=== PATIENT | female | born 1990 | race Caucasian/White ===

== ENCOUNTER 2018-02-07 13:36 | Inpatient (IN) | payer BC ==
--- NOTE | 2018-02-07 14:49 | PN ---
L&D Outpatient: Visit - Reproductive Information Estimated Due Date: 02/11/18 Gestational Age: 39 Weeks and 3 Days : 3 Para: 1 - 1011 - Reason for Visit Visit Reason: Pt presents for evaluation of labor contractions and possible leaking of fluid - Antepartal Records Antepartal Record: Reviewed, Uncomplicated - Patient History Patient History Significant: No L&D Outpatient: ROS - Review of Systems Constitutional: Uncomfortable - with UCs CV Complaint: No Respiratory: Shortness of Breath: No Gastrointestinal: No Nausea/Vomiting, Normal Bowel Movement Genitourinary: Leaking Fluid - ? Small gush of fluid around 1100. Nothing since , No Dysuria, No Bleeding Musculoskeletal: Contractions Movement: Normal L&D Outpatient: Exam Vitals - Most Recent: BP 144/80 Repat 127/77 HR 102 RR 20 T 97.5 Lab Values - Entire Visit: Laboratory Tests 02/07/18 13:55 Vag Amniotic Fld Detect Negative - Cervical Exam Cervical Exam: V. posterior 3cm/70%/vtx -2 - Abdominal Exam Abdomen Exam: Non-Tender, Fundal Height Consistent with Dates Abdomen Exam Comment: UCs q 3-4 min. Mild to moderate x 60-90 sec - Membranes Membrane Status: Intact - Ultrasound/Biophysical Profile Ultrasound Status: Not Done L&D Outpatient: EFM - External Monitor Findings Baseline Heart Rate: 135 External Monitor Findings: Accelerations Present, No Pattern of Variable or Late Decelerations, Variability Moderate, Baseline Stable External Monitor Findings Comment: No evidence of metabolic acidemia L&D Outpatient: Asses/Plan Assessment: A: IUP at 39-3/7 without evidence of membrane rupture Early labor vs. early active labor No evidence of metabolic acidemia P: Observe and re-eval in 1-2 hours or sooner PRN
--- NOTE | 2018-02-07 16:03 | PN ---
Progress Note - Progress Note Date of Service: 02/07/18 Note: S: Pt up and walking around. Reports regular, uncomfortable UCs q 3-4 minutes, unchanged. Describes active FM. No VB or LOF. Not excited to go home with regular UCs O: VSS, afebrile FHT: 135bpm. Moderate variability. +Accels. No decels UCs q 3-4 min, mild to moderate x 60-90 sec VE: v. posterior 3cm/70%/vtx -1 (unchanged in the last hour) A: IUP at 39-2/7 in latent labor No evidence of metabolic acidemia P: Pt prefers to wait here and continue expectant mgmt. Re-eval in a couple of hours or sooner PRN
--- NOTE | 2018-02-07 19:23 | HP ---
General Information - General Information Maternal Age: 27 Grav: 3 Para: 1 - 1011 SAB: 0 IEA: 1 Estimated Due Date: 02/11/18 Determined By: Please note that pt is 39-3/7 weeks GA by LMP not 40-0/7 as indicated in [employer] - confirmed by 10 week sono Gestational Age in Weeks and Days: 40 Weeks and 0 Days Maternal Blood Type and Rh: A Positive - Results this Serology/RPR Result: Non-Reactive Rubella Result: Immune HBsAg Result: Negative HIV Result: Negative GBS Culture Result: Negative Past Medical History Delivery History: Hx Uncomplicated Vaginal Delivery Delivery History Comment: 08/2013 7lbs 5oz male at [facility] by Freda Gallardo CNM Pertinent Past Medical History: See Records Pertinent Past Surgical History: See Records Pertinent Family History: See Records Family History Comment: Hypothyroid - Antepartal Records Antepartal Records: Reviewed, Uncomplicated Review of Systems Constitutional: Uncomfortable - with UCs CV Complaint: No Respiratory: Shortness of Breath: No Gastrointestinal: No Nausea/Vomiting, Normal Bowel Movement Genitourinary: No Dysuria, No Bleeding, No Leaking Fluid Musculoskeletal: Contractions Neurological: No Headache Movement: Normal Exam Allergies/Adverse Reactions: Allergies MS Bee Venom [Bee Venom] Allergy (Severe, Verified 09/19/13 08:53) Anaphylatic Shock BP 136/78 HR 95 T 98.8 Lab Values - Entire Visit: Laboratory Tests 02/07/18 13:55 Vag Amniotic Fld Detect Negative - Measurements Height: 5 ft 3 in Weight: 213 lb Weight in lbs: 213 Body Mass Index (BMI): 37.7 Pre- Weight: 180 lb Weight Gained This : 33 lbs and 0 ozs - Exam Abdomen: No Upper Quadrant Pain Breast: Breast Exam Deferred CVA: No CVA Tenderness Extremities: Edema - 1+ bilateraly pitting edema in LE Heart: Normal Rhythm/Heart Sounds HEENT: No Significant Findings Lungs: Clear Bilaterally Rectal: Rectal Exam Deferred Reflexes: DTR 2+ Thyroid: No Thyromegaly - Cervical Exam VE: 3cm/80%/vtx -2 - Abdominal Exam Abdomen Exam: Non-Tender, Fundal Height Consistent with Dates Abdomen Exam Comment: UCs q 2-3 min. Moderate to firm. Lasting 60-90 sec - Membranes Membrane Status: Intact - Ultrasound/Biophysical Profile Ultrasound Status: Not Done EFM Findings - External Monitor Findings Baseline Heart Rate: 130 External Monitor Findings: Accelerations Present, No Pattern of Variable or Late Decelerations, Variability Moderate, Baseline Stable Contractions: Regular, Moderate, 45-90 Seconds Contraction Frequency: q 2-3 min Assessment/Plan - Reason for Visit Reason for Visit: IUP at 39-3/7 weeks in early active labor No evidence of metabolic acidemia - Obstetrical Risk Factors Risk Factors Comment: None - Plan Plan: Active Labor Plan Comment: Anticipate - Date/Time of Admission Date of Admission: 02/07/18 Time of Admission: 19:20
[2018-02-08] MEDS ORDERED: Witch Hazel PAD* JAR TOPICAL PRN (07:41)
[2018-02-08] MEDS ORDERED: Acetaminophen TAB* 325 MG PO PRN (07:41)
[2018-02-08] MEDS ORDERED: Dibucaine 1% 28.35 GM TUBE PR PRN (07:41)
[2018-02-08] MEDS ORDERED: Glycerin ADULT SUPP PR PRN (07:41)
[2018-02-08] MEDS ORDERED: Witch Hazel PAD* JAR ONE (07:44)
[2018-02-08] MEDS: Ibuprofen TAB* 600 MG PO PRN ×3 (08:01→20:20)
[2018-02-08] MEDS ORDERED: Simethicone TAB* 80 MG TAB.CHEW PO SCH (08:30)
[2018-02-08] MEDS: Docusate CAP* 100 MG PO SCH ×3 (10:20→20:20)
[2018-02-09 07:16] LABS: ABS Basophils 0 10^3/ul (0-0.2); ABS Eosinophils 0.1 10^3/ul (0-0.6); ABS Lymphocytes 2.8 10^3/ul (1.0-4.8); ABS Monocytes 0.8 10^3/ul (0-0.8); ABS Neutrophils 7.5 10^3/ul (1.5-7.7); ABS Nucleated RBC 0 10^3/ul; Eosinophil % 0.6 % (0-6); Hematocrit 35 % (35-47); Hemoglobin 11.6 g/dl (12.0-16.0); Lymphocyte % 25.1 % (25-47); Mean Corpuscular HGB Conc 34 g/dl (31-36); Mean Corpuscular Hemoglobin 29 pg (27-31); Mean Corpuscular Volume 86 fL (80-97); Mean Platelet Volume 9.3 um3 (7.4-10.4); Nucleated Red Blood Cells % 0.1; Platelet Count 197 10^3/ul (150-450); Red Cell Distribution Width 14 % (10.5-15); White Blood Count 11.2 10^3/ul (3.5-10.8)
[2018-02-09 08:13] VITALS: BP 114/78
[2018-02-09] MEDS ORDERED: Ferrous Gluconate TAB* 324 MG TAB PO SCH (09:00)
[2018-02-09] MEDS: Ibuprofen TAB* 600 MG PO PRN ×2 (09:29→17:18)
[2018-02-09] MEDS: Docusate CAP* 100 MG PO SCH (09:29)
== END 2018-02-09 17:50 | disposition home or self-care (01) | DRG 560 ==
LOC: MCHOBOUT 13:36 → MCHOB 19:13
PROVIDERS: ADMIT Midwife; ATTEND Midwife
PROC: 10E0XZZ Delivery of Products of Conception, External Approach (ICD-10-PCS; principal; 2018-02-08)
PROC: 10907ZC Drainage of Amniotic Fluid, Therapeutic from Products of Conception, Via Natural or Artificial Opening (ICD-10-PCS; 2018-02-08)
PROC: 4A1HXCZ Monitoring of Products of Conception, Cardiac Rate, External Approach (ICD-10-PCS; 2018-02-08)
DX: O69.3XX0 Labor and delivery complicated by short cord, not applicable or unspecified (principal); O43.123 Velamentous insertion of umbilical cord, third trimester; O32.6XX0 Maternal care for compound presentation, not applicable or unspecified; Z3A.39 39 weeks gestation of pregnancy; Z37.0 Single live birth; Z91.030 Bee allergy status; Z83.49 Family history of other endocrine, nutritional and metabolic diseases; Z87.442 Personal history of urinary calculi
CPT/HCPCS: 36415; 84112; 85025; A9270-GY

== ENCOUNTER 2018-05-03 17:05 | Emergency (ER) | payer BC, MEDICAID ==
[2018-05-03] MEDS ORDERED: Ibuprofen TAB* 600 MG PO ONE (18:22)
--- NOTE | 2018-05-03 18:29 | ED ---
Skin Complaint - HPI Summary HPI Summary: 27-year-old presents ER with complaints of right toenail pain. Patient states that been ongoing for the past couple days. It has been worsening. States she has an issue with her great toe on that foot. Previously had toenail removed by type copy examiner however go back and now believes it to an ingrown toenail. States pain has been increasing, Agnieszka become more red and tender. Denies any discharge. Admits to being warm. States she has tried to pop it and remove the nail multiple times at home with needles and scalpels. Has had similar issues in the past. Hurts to walk due to the pain. Has not taken any medicine at home. No past medical history. No known history of MRSA. No other complaints at this time. Denies any fever. No red streaking. - History of Current Complaint Chief Complaint: EDExtremityLower Time Seen by Provider: 05/03/18 17:25 Stated Complaint: POSSIBLE INFECTION RT BIG TOE Hx Obtained From: Patient Hx Last Menstrual Period: 06/22/16 Onset/Duration: Started Days Ago, Still Present, Worse Since Skin Exposure Onset/Duration: Days Ago Timing: Constant Onset Severity: Moderate Current Severity: Severe Pain Intensity: 10 Pain Scale Used: 0-10 Numeric Skin Location: Foot - great toe, right Character: Swelling, Redness, Painful Aggravating Symptom(s): Touch Alleviating Symptom(s): Nothing Associated Signs & Symptoms: Negative - Allergy/Home Medications Allergies/Adverse Reactions: Allergies Allergy/AdvReac Type Severity Reaction Status Date / Time bee venom protein (honey bee) Allergy Anaphylatic Verified 05/03/18 17:11 Shock PMH/Surg Hx/FS Hx/Imm Hx Endocrine/Hematology History: Denies: Hx Anticoagulant Therapy, Hx Diabetes, Hx Thyroid Disease Cardiovascular History: Denies: Hx Congestive Heart Failure, Hx Deep Vein Thrombosis, Hx Hypertension , Hx Myocardial Infarction, Hx Pacemaker/ICD Respiratory History: Reports: Hx Asthma - As a child. Denies: Hx Chronic Obstructive Pulmonary Disease (COPD), Hx Lung Cancer, Hx Pneumonia, Hx Pulmonary Embolism GI History: Denies: Hx Gall Bladder Disease, Hx Gastrointestinal Bleed, Hx Ulcer, Hx Urosepsis History: Reports: Hx Kidney Infection - hx of kidney stones Denies: Hx Kidney Stones, Hx Renal Disease Neurological History: Denies: Hx Dementia, Hx Migraine, Hx Seizures, Hx Transient Ischemic Attacks (TIA) Psychiatric History: Denies: Hx Anxiety, Hx Depression, Hx Schizophrenia, Hx Bipolar Disorder - Surgical History Surgery Procedure, Year, and Place: none - Immunization History Immunizations Up to Date: Yes Infectious Disease History: No Infectious Disease History: Denies: Traveled Outside the [place] in Last 30 Days - Family History Known Family History: Positive: Hypertension, Diabetes Negative: Cardiac Disease - Social History Alcohol Use: None Substance Use Type: Reports: None Smoking Status (MU): Never Smoked Tobacco Review of Systems Constitutional: Negative Cardiovascular: Negative Respiratory: Negative Musculoskeletal: Negative Positive: Other - great toenail pain All Other Systems Reviewed And Are Negative: Yes Physical Exam Triage Information Reviewed: Yes Vital Signs On Initial Exam: Initial Vitals Temp Pulse Resp BP Pulse Ox 98.8 F 78 14 121/72 99 05/03/18 17:07 05/03/18 17:07 05/03/18 17:07 05/03/18 17:07 05/03/18 17:07 Vital Signs Reviewed: Yes Appearance: Positive: Well-Appearing, No Pain Distress, Well-Nourished Skin: Positive: Warm, Skin Color Reflects Adequate Perfusion, Dry, Erythema @ - right great toe, surrounding nail bed, no fluctuance, drainage or abscess. no sign of paronychia. edematous, warmth and erythematous. appears to be an infected ingrown toenail.. Negative: Cold, Cyanosis @, Pale Head/Face: Positive: Normal Head/Face Inspection Eyes: Positive: Conjunctiva Clear ENT: Positive: Hearing grossly normal, Pharynx normal Neck: Positive: Supple, Nontender Respiratory/Lung Sounds: Positive: Clear to Auscultation, Breath Sounds Present. Negative: Rales, Rhonchi, Wheezes Cardiovascular: Positive: Normal, RRR, Pulses are Symmetrical in both Upper and Lower Extremities. Negative: Murmur, Rub Abdomen Description: Positive: Nontender, Soft Bowel Sounds: Positive: Present Musculoskeletal: Positive: Normal, Strength/ROM Intact Neurological: Positive: Normal, Sensory/Motor Intact, Alert, Oriented to Person Place, Time, CN Intact II-III Diagnostics - Vital Signs Vital Signs Temp Pulse Resp BP Pulse Ox 05/03/18 17:07 98.8 F 78 14 121/72 99 - Laboratory Lab Statement: Any lab studies that have been ordered have been reviewed, and results considered in the medical decision making process. Course/Dx - Course Course Of Treatment: Appears to be an infected ingrown toenail with surrounding cellulitis. No abscess or signs of paronychia. Patient attempted drainage at home. Does not appear to require drainage at this time. Will give Keflex and Bactroban. Continue Epsom salt and warm soaks. Rest and ibuprofen. Given ibuprofen while in ED. Follow-up with podiatry on Wednesday as scheduled. Aware worsening signs and symptoms watch out for. No concern for other etiology at this time. Follow-up with primary care provider. - Differential Diagnoses - Skin Complaint Differential Diagnoses: Cellulitis, Other - Ingrown toenail - Diagnoses Provider Diagnoses: Ingrown toenail of right foot with infection Discharge - Sign-Out/Discharge Documenting (check all that apply): Patient Departure - Discharge Plan Condition: Good Disposition: HOME Prescriptions: Cephalexin CAP* [Keflex CAP*] 500 mg PO TID #30 cap Mupirocin 2% OINT* [Bactroban 2 % Oint*] 1 applic TOPICAL BID #1 tube Patient Education Materials: Cellulitis (ED), Ingrown Nail (ED) Referrals: [facility] [place] [facility] [place]Outside] Yee Blunt DPM [Doctor of Podiatric Medicine] - Additional Instructions: take prescribed antibiotic as directed. apply topical antibiotic as directed. warm soaks with epsom salts several times daily. wash hands frequently. follow up with podiatry as scheduled on wednesday. continue ibuprofen as discussed for pain and inflammation - Billing Disposition and Condition Condition: GOOD Disposition: Home
[2018-05-03 18:46] VITALS: BP 128/68
== END 2018-05-03 18:45 | disposition home or self-care (01) ==
LOC: ED 17:05
DX: L60.0 Ingrowing nail (principal); L03.031 Cellulitis of right toe
CPT/HCPCS: 99282; A9270-GY

== ENCOUNTER 2019-07-11 18:38 | Emergency (ER) | payer MEDICAID, OTHER ==
--- OUTSIDE RECORDS SUMMARY | 2019-07-11 19:33 | XMS REPORT ---
:1990 Author Organization [facility] Address [address] [place] [address] Care Team Providers Name Role Phone Emilie Watt Unavailable Unavailable PROBLEMS No Known Problems ALLERGIES No Information ENCOUNTERS Encounter Location Date Diagnosis [address] Aug, [place] [address] [facility] [address] [facility], [place] [address] [facility] [address], [place] [address] Aug, [place] [address] Aug, [place] [address] Jul, [place] [address] Jun, [place] [address] [facility] [address] [place], Apr, [place] [address] [place] [address] Apr, [place] [address] Apr, Dental caries [address] [place] [address] Apr, [place] [address] [facility] [address] [place] [address] Mar, [place] [address] February, Health [place] [address] Nov, [place] [address] [facility] [address] Nov, [place] [address] [facility] [address] Sep, [place] [address] [facility] [address] Jul, [place] [address] [facility] [address] Jul, [place] [address] [facility] [address] [facility] Jul, [place] [address] [facility] [address] [facility] May, Dental caries [address] [place] [address] [place] [address] [facility] [place], [place] [address] [facility] [address] [place], [place] [address] [facility] [address] [place], [place] [address] [facility] [address] [place] [address] [facility] [address] [place] [address] [facility] [address] [place] [address] [facility] [address] [place] [address] [facility] [address] [place], [place] [address] [facility] [address] [place], [place] [address] [facility] [address] [place] [address] [facility] [address] [facility] Nov, [place] [address] [facility] [address] [place] [address] [facility] [address] [place] [address] [facility] [address] [place] [address] [facility] [address] [place] [address] [facility] [address] [place] [address] [facility] [address] [place] [address] [facility] [address] [place] [address] [facility] [address] [place] [address] [facility] [address] [place], [place] [address] [place] [facility] [address] [place], [place] [address] [place] [facility] [address] [place], [place] [address] Facilitated Enrollment - UNKNOWN Nov, [place] [facility] [address] [place], [place] [address] [facility] [address] [facility] Nov, URI, acute [address] [place] [address] [place] [facility] [address] [place], [place] [address] [facility] [address] [facility] Sep, [place] [address] [place] [facility] [address] [place], [place] [address] [place] [facility] [address] [place] [address] [facility] [address] [place], [place] [address] [facility] [address] [place], [place] [address] [facility] [address] [place], [place] [address] [place] [facility] [address] [place], [place] [address] [place] [facility] [address] [place], [place] [address] [place] [facility] [address] [place], Jul, Finger [place], [place] [address]29[address] [place] [address] IMMUNIZATIONS No Known Immunizations SOCIAL HISTORY Never Assessed REASON FOR REFERRAL FUNCTIONAL STATUS PLAN OF CARE VITAL SIGNS MEDICATIONS Unknown Medications PROCEDURES No Known procedures RESULTS No Results REASON FOR VISIT Acute Triage Insurance Providers [facility] Health Member Patient Patient Patient Patient Patient Subscriber Subscriber Subscriber Group Insurance Plan Plan Plan Plan ID Relationship Address Phone Name Date of ID Name Date of No Type Insurance Insurance Insurance Coverage to Subscriber Address Phone Name Dates Delta [phone] Delta self Patrizia [id number] [facility] [place] [address] [place] [address] Aetna Open [phone] Aetna Open self Patrizia [id number] Access [id number] Access [place] [address] [place] [facility] [address] Blue [phone] Blue self Patrizia [id number] Choice Opt [id number] 89 Choice Opt [place] [address] [place] [facility] [address] Excellus [phone] Excellus self Patrizia [id number] BC HMO POS [id number] 89 BC HMO POS [place] [address] [place] [address] Medicaid [id number] [phone] Medicaid self Patrizia [id number] [facility] [address] [place] [address] Aetna [phone] Aetna self Patrizia [id number]- [id number] Dental- [place] [address] PPO [place] PPO 01 [place] [address] [place] [phone] [place] self Patrizia [id number] Medicaid [place] 47 [place] [address] Medical Case [phone] Case self Patrizia [id number] Management [place] 02 Management [facility] [address] [facility] Blue [phone] Blue self Patrizia [id number] [phone] Choice Opt [phone] Attn 83 Choice Opt [place] -WEA GG457 [place] Claims [id number] [place] Hplex [facility] Hplex Edwin [facility] [address] Reginald [phone] Reginald self Patrizia [id number] Medicaid [id number] Medicaid [facility] [place] [address] [employer] MEDICAL (GENERAL) HISTORY Type Description Date Medical History heart murmur Surgical History dental surgery Hospitalization History childbirth
[2019-07-11] MEDS ORDERED: Ondansetron INJ* 2 MG/ML VIAL IV ONE (19:46)
[2019-07-11] MEDS ORDERED: Morphine INJ* 10 MG/ML 1 ML CARPUJECT IV ONE (19:46)
[2019-07-11] MEDS ORDERED: Morphine 10 MG/ML VIAL (1 ml) IV ONE (19:46)
[2019-07-11] MEDS ORDERED: NS 0.9% 1000 ML** 2,000 ML IV ONE (20:00)
[2019-07-11 20:35] LABS: Urine Appearance Clear; Urine Bacteria Absent (Absent); Urine Bilirubin Negative (Negative); Urine Blood 3+ (Negative); Urine Color Yellow; Urine Glucose Negative (Negative); Urine Ketones 1+ (Negative); Urine Nitrite Negative (Negative); Urine Protein 1+(30 mg/dL) (Negative); Urine Red Blood Cell 3+(>10/hpf) (Absent); Urine Specific Gravity 1.026 (1.010-1.030); Urine Squamous Epithelial Cell Present (Absent); Urine Urobilinogen Negative (Negative); Urine White Blood Cell Absent (Absent)
[2019-07-11 20:53] LABS: ABS Basophils 0.1 10^3/ul (0-0.2); ABS Eosinophils 0.1 10^3/ul (0-0.6); ABS Lymphocytes 1.1 10^3/ul (1.0-4.8); ABS Monocytes 0.5 10^3/ul (0-0.8); ABS Neutrophils 10.9 10^3/ul (1.5-7.7); Eosinophil % 0.7 %; Hematocrit 38 % (35-47); Hemoglobin 12.6 g/dL (12.0-16.0); Lymphocyte % 8.4 %; Mean Corpuscular HGB Conc 33 g/dL (31-36); Mean Corpuscular Hemoglobin 30 pg (27-31); Mean Corpuscular Volume 89 fL (80-97); Mean Platelet Volume 8.8 fL (7.4-10.4); Platelet Count 202 10^3/uL (150-450); Red Blood Count 4.25 10^6 /uL (3.70-4.87); Red Cell Distribution Width 13 % (10-15); White Blood Count 12.7 10^3/uL (3.5-10.8)
[2019-07-11 21:13] LABS: ALT 16 U/L (7-52); AST 12 U/L (13-39); Albumin 3.9 g/dL (3.2-5.2); Albumin/Globulin Ratio 1.6 (1-3); Alkaline Phosphatase 31 U/L (34-104); Anion Gap 7 mmol/L (2-11); BUN/Creatinine Ratio 22.7 (8-20); Blood Urea Nitrogen 17 mg/dL (6-24); C Reactive Protein 2.28 mg/L (<8.01); CO2 Carbon Dioxide 25 mmol/L (22-32); Calcium 8.3 mg/dL (8.6-10.3); Chloride 106 mmol/L (101-111); EGFR African American 111.3 (>60); Globulin 2.4 g/dL (2-4); Glucose 148 mg/dL (70-100); Potassium 3.5 mmol/L (3.5-5.0); Sodium 138 mmol/L (135-145); Total Protein 6.3 g/dL (6.4-8.9)
[2019-07-11 21:19] LABS: HCG Pregnancy < 0.60 mIU/mL
[2019-07-11 21:20] VITALS: BP 105/61
--- NOTE | 2019-07-11 22:19 | ED ---
Abdominal Pain/Female - HPI Summary HPI Summary: This patient is a 29 year old F presenting to [facility] accompanied by her boyfriend with a chief complaint of LLQ abdominal pain that radiates to her lumbar and thoracic spine since 07/10/19. Patient states that she driving home from work when the LLQ abdominal pain began. Patient states that she came home and laid down in bed. Patient states when she laid down her boyfriend started to rub her back and she experienced pain. Patient states that the pain in her back took her breath away and the pain shot up" from abdomen to her back. The patient rates the pain 10/10 in severity in the ED. Symptoms aggravated by nothing. Symptoms alleviated by nothing. Patient reports LKFLP 07/07/19. Patient denies fever, diarrhea, vaginal discharge and STDs. Vital signs while in room: HR 69 bpm, BP 140/60, O2 sat 95% A1 Home Medications Medication Instructions Recorded Confirmed Type Levonorgestrel-Ethin Estradiol 1 tab PO DAILY 06/14/19 07/11/19 History [Levonor-Eth Estrad 0.1-0.02 mg] Tea Tree Oil [Tea Tree] 1 oil TOPICAL BID PRN 07/11/19 07/11/19 History oxyCODONE/Acetamin 5/325 MG* 1 tab PO Q6H PRN #12 tab MDD 4 07/11/19 Rx [Percocet 5/325 TAB*] - History of Current Complaint Chief Complaint: EDBackInjuryPain Stated Complaint: SEVERE ABDOMINAL PAIN PER PT Time Seen by Provider: 07/11/19 19:45 Hx Obtained From: Patient Hx Last Menstrual Period: 07/07/19 ?: No Onset/Duration: Sudden Onset, Lasting Days - 07/10/19 Timing: Constant Severity Initially: Severe Severity Currently: Severe Pain Intensity: 10 Pain Scale Used: 0-10 Numeric Location: Discrete At: LLQ Radiates: Yes Radiates to: Back Character: Cramping Aggravating Factor(s): Nothing Alleviating Factor(s): Nothing Associated Signs and Symptoms: Positive: Other: - Nursing triage note states chills and fever. Pt denies fever to Dr. Weber and is afebrile in the ED. Negative: Fever, Vaginal Discharge, Diarrhea Allergies/Adverse Reactions: Allergies Allergy/AdvReac Type Severity Reaction Status Date / Time bee venom protein (honey bee) Allergy Anaphylatic Verified 06/20/19 07:48 Shock Home Medications: Home Medications Tea Tree Oil [Tea Tree] 1 oil TOPICAL BID PRN 07/11/19 [History Confirmed ] PMH/Surg Hx/FS Hx/Imm Hx Previously Healthy: No Endocrine/Hematology History: Denies: Hx Anticoagulant Therapy, Hx Diabetes, Hx Thyroid Disease Cardiovascular History: Reports: Other Cardiovascular Problems/Disorders - " hole in heart" Denies: Hx Congestive Heart Failure, Hx Deep Vein Thrombosis, Hx Hypertension , Hx Myocardial Infarction, Hx Pacemaker/ICD Respiratory History: Reports: Hx Asthma - as a child Denies: Hx Chronic Obstructive Pulmonary Disease (COPD), Hx Lung Cancer, Hx Pneumonia, Hx Pulmonary Embolism GI History: Denies: Hx Gall Bladder Disease, Hx Gastrointestinal Bleed, Hx Ulcer, Hx Urosepsis History: Reports: Hx Kidney Infection - 2 weeks ago on 07/11/19 ED visit, Rx' d with Abx , Hx Kidney Stones Denies: Hx Renal Disease Neurological History: Denies: Hx Dementia, Hx Migraine, Hx Seizures, Hx Transient Ischemic Attacks (TIA) Psychiatric History: Denies: Hx Anxiety, Hx Depression, Hx Schizophrenia, Hx Bipolar Disorder - Surgical History Surgical History: Yes Surgery Procedure, Year, and Place: DENTAL Infectious Disease History: No Infectious Disease History: Denies: Hx Clostridium Difficile, Hx Hepatitis, Hx Human Immunodeficiency Virus (HIV), Hx of Known/Suspected MRSA, Hx Shingles, Hx Tuberculosis, Hx Known/ Suspected VRE, Hx Known/Suspected VRSA, History Other Infectious Disease, Traveled Outside the [place] in Last 30 Days - Family History Known Family History: Positive: Hypertension, Diabetes, Other - Endometriosis, Grandmother Negative: Cardiac Disease - Social History Alcohol Use: Occasionally Hx Substance Use: No Substance Use Type: Reports: None Hx Tobacco Use: No Smoking Status (MU): Never Smoked Tobacco Review of Systems Negative: Fever Cardiovascular: Negative Respiratory: Negative Positive: Abdominal Pain - LLQ. Negative: Diarrhea Negative: discharge - vaginal discharge Positive: Other - back pain that radiates from LLQ Skin: Negative Neurological: Negative Psychological: Normal All Other Systems Reviewed And Are Negative: Yes Physical Exam - Summary Physical Exam Summary: Appearance: Ill-appearing, severe acute pain distress LLQ, well-nourished Skin: Warm, color reflects adequate perfusion, dry Head: Normal Head/Face inspection, atraumatic Eyes: Conjunctiva clear ENT: Normal inspection Neck: Supple, no nodes, no JVD Respiratory: Lungs clear, normal breath sounds, no respiratory distress Cardio: RRR, No murmur, pulses normal, brisk capillary refill Abdomen: Soft, tender LLQ, no rebound, no guarding, no masses, non-distended, CVAT Bowel sounds: Present Musculoskeletal: Strength Intact/ROM intact, no calf tenderness, no edema. Psychological: Normal Neuro: Alert, muscle tone normal, no focal deficit Pelvic: Patient declines due to severe pain Triage Information Reviewed: Yes Vital Signs On Initial Exam: Initial Vitals Temp Pulse Resp BP Pulse Ox 96.9 F 70 18 138/60 96 07/11/19 18:50 07/11/19 18:50 07/11/19 18:50 07/11/19 18:50 07/11/19 18:50 Vital Signs Reviewed: Yes Procedures - Sedation Patient Received Moderate/Deep Sedation with Procedure: No Diagnostics - Vital Signs Vital Signs Temp Pulse Resp BP Pulse Ox 07/11/19 21:00 59 97 07/11/19 20:48 58 105/61 98 07/11/19 20:01 24 07/11/19 20:00 61 95 07/11/19 19:39 75 131/81 100 07/11/19 19:19 70 100 07/11/19 18:50 96.9 F 70 18 138/60 96 - Laboratory Lab Results: Lab Results 07/11/19 07/11/19 07/11/19 Range/Units 20:15 20:42 20:42 WBC 12.7 H (3.5-10.8) 10^3/uL RBC 4.25 (3.70-4.87) 10^6 /uL Hgb 12.6 (12.0-16.0) g/dL Hct 38 (35-47) % MCV 89 (80-97) fL MCH 30 (27-31) pg MCHC 33 (31-36) g/dL RDW 13 (10-15) % Plt Count 202 (150-450) 10^3/uL MPV 8.8 (7.4-10.4) fL Neut % (Auto) 86.2 % Lymph % (Auto) 8.4 % [place] % (Auto) 4.3 % Eos % (Auto) 0.7 % Baso % (Auto) 0.4 % Absolute Neuts (auto) 10.9 H (1.5-7.7) 10^3/ul Absolute Lymphs (auto) 1.1 (1.0-4.8) 10^3/ul Absolute Monos (auto) 0.5 (0-0.8) 10^3/ul Absolute Eos (auto) 0.1 (0-0.6) 10^3/ul Absolute Basos (auto) 0.1 (0-0.2) 10^3/ul Absolute Nucleated RBC 0.0 10^3/ul Nucleated RBC % 0.0 Sodium 138 (135-145) mmol/L Potassium 3.5 (3.5-5.0) mmol/L Chloride 106 (101-111) mmol/L Carbon Dioxide 25 (22-32) mmol/L Anion Gap 7 (2-11) mmol/L BUN 17 (6-24) mg/dL Creatinine 0.75 (0.51-0.95) mg/dL Est GFR ( Amer) 111.3 (>60) Est GFR (Non-Af Amer) 92.0 (>60) BUN/Creatinine Ratio 22.7 H (8-20) Glucose 148 H (70-100) mg/dL Lactic Acid (0.5-2.0) mmol/L Calcium 8.3 L (8.6-10.3) mg/dL Total Bilirubin 0.40 (0.2-1.0) mg/dL AST 12 L (13-39) U/L ALT 16 (7-52) U/L Alkaline Phosphatase 31 L (34-104) U/L C-Reactive Protein 2.28 (<8.01) mg/L Total Protein 6.3 L (6.4-8.9) g/dL Albumin 3.9 (3.2-5.2) g/dL Globulin 2.4 (2-4) g/dL Albumin/Globulin Ratio 1.6 (1-3) Beta HCG, Quant < 0.60 mIU/mL Urine Color Yellow Urine Appearance Clear Urine pH 6.0 (5-9) Ur Specific [place] 1.026 (1.010-1.030) Urine Protein 1+(30 mg/dl) A (Negative) Urine Ketones 1+ A (Negative) Urine Blood 3+ A (Negative) Urine Nitrate Negative (Negative) Urine Bilirubin Negative (Negative) Urine Urobilinogen Negative (Negative) Ur Leukocyte Esterase Negative (Negative) Urine WBC (Auto) Absent (Absent) Urine RBC (Auto) 3+(>10/hpf) A (Absent) Ur Squamous Epith Cells Present A (Absent) Urine Bacteria Absent (Absent) Urine Glucose Negative (Negative) Urine Ascorbic Acid * A (Negative) 07/11/19 Range/Units 20:42 WBC (3.5-10.8) 10^3/uL RBC (3.70-4.87) 10^6 /uL Hgb (12.0-16.0) g/dL Hct (35-47) % MCV (80-97) fL MCH (27-31) pg MCHC (31-36) g/dL RDW (10-15) % Plt Count (150-450) 10^3/uL MPV (7.4-10.4) fL Neut % (Auto) % Lymph % (Auto) % [place] % (Auto) % Eos % (Auto) % Baso % (Auto) % Absolute Neuts (auto) (1.5-7.7) 10^3/ul Absolute Lymphs (auto) (1.0-4.8) 10^3/ul Absolute Monos (auto) (0-0.8) 10^3/ul Absolute Eos (auto) (0-0.6) 10^3/ul Absolute Basos (auto) (0-0.2) 10^3/ul Absolute Nucleated RBC 10^3/ul Nucleated RBC % Sodium (135-145) mmol/L Potassium (3.5-5.0) mmol/L Chloride (101-111) mmol/L Carbon Dioxide (22-32) mmol/L Anion Gap (2-11) mmol/L BUN (6-24) mg/dL Creatinine (0.51-0.95) mg/dL Est GFR ( Amer) (>60) Est GFR (Non-Af Amer) (>60) BUN/Creatinine Ratio (8-20) Glucose (70-100) mg/dL Lactic Acid 1.5 (0.5-2.0) mmol/L Calcium (8.6-10.3) mg/dL Total Bilirubin (0.2-1.0) mg/dL AST (13-39) U/L ALT (7-52) U/L Alkaline Phosphatase (34-104) U/L C-Reactive Protein (<8.01) mg/L Total Protein (6.4-8.9) g/dL Albumin (3.2-5.2) g/dL Globulin (2-4) g/dL Albumin/Globulin Ratio (1-3) Beta HCG, Quant mIU/mL Urine Color Urine Appearance Urine pH (5-9) Ur Specific [place] (1.010-1.030) Urine Protein (Negative) Urine Ketones (Negative) Urine Blood (Negative) Urine Nitrate (Negative) Urine Bilirubin (Negative) Urine Urobilinogen (Negative) Ur Leukocyte Esterase (Negative) Urine WBC (Auto) (Absent) Urine RBC (Auto) (Absent) Ur Squamous Epith Cells (Absent) Urine Bacteria (Absent) Urine Glucose (Negative) Urine Ascorbic Acid (Negative) Result Diagrams: 07/11/19 20:42 07/11/19 20:42 Lab Statement: Any lab studies that have been ordered have been reviewed, and results considered in the medical decision making process. - Radiology KUB Radiology Interpretation Completed By: ED Physician Summary of Radiographic Findings: LLQ stone, preliminary reading by ED physician , awaiting final report - Ultrasound Renal US Ultrasound Interpretation Completed By: Radiologist Summary of Ultrasound Findings: Renal US reveals, per radiologist, IMPRESSION: 1. Left hydronephrosis suggesting a obstructing ureteral calculus. 2. Left nephrolithiasis. ED Physician has reviewed this report. Re-Evaluation - Re-Evaluation First Eval Re-Evaluation Time: 22:50 Change: Improved Comment: Pain is returning, but pt is determined to go home. Is a teacher, and wants to work. Will give more morphine. Second Eval Re-Evaluation Time: 23:25 Change: Improved Comment: Pain is better. Will give percocet now prior to discharge for longer pain control tonight. Pt and male partner agree with DC. Abdominal Pain Fem Course/Dx - Course Course Of Treatment: Patient is a 29 year old F with hx kidney stones presenting to [facility] with severe LLQ abdominal pain radiating into her back. Renal US reveals, per radiologist, IMPRESSION: 1. Left hydronephrosis suggesting a obstructing ureteral calculus. 2. Left nephrolithiasis. ED Physician has reviewed this report. KUB, unofficial report shows LLQ stone, awaiting final radiologist's report. Blood test results with no significant abnormalities except for WBC 12.7, Absolute Neuts 10.9, BUN/Creatinine 22.7, Glucose 148, Calcium 8.3, AST 12, Alkaline Phosphatase 31, Total Protein 6.3. Urinalysis with Urine Protein 1+ (30 mg/dl) , Urine Ketones 1+ , Urine Blood 3+ , Urine RBC 3+ (>10/hpf) , Ur Squamous Epith Cells Present , Urine Ascorbic Acid * . In the ED course the patient was given Morphine 5 mg x1, then morphine 4mg x 1, Zofran 4 mg IV, and Percocet 5/325mg 1 tab po, IVNS 2000 mls. Care was discussed with Dr. Birch who recommended the KUB, and advises no antibiotics necessary at this time based on my report to him, and advises f/u in am. Final dx is left hydronephrosis and left ureteral calculus - Diagnoses Provider Diagnoses: Hydronephrosis of left kidney, Ureteral calculus, left, Left nephrolithiasis Is Visit Related: No - Provider Notifications Discussed Care Of Patient With: Bismark Birch - no antibiotics necessary at this time, definite f/u in am Instructed by Provider To: Have Pt Call For Appt. Discharge ED - Sign-Out/Discharge Documenting (check all that apply): Patient Departure - discharge home with boyfriend driving - Discharge Plan Condition: Stable Disposition: HOME Prescriptions: oxyCODONE/Acetamin 5/325 MG* [Percocet 5/325 TAB*] 1 tab PO Q6H PRN #12 tab MDD 4 PRN Reason: Pain - Severe Patient Education Materials: Hydronephrosis (ED), Ureteral Stones (ED) Forms: *Work Release Referrals: Bryn Guillermo MD [Medical Doctor] - 1 Week (for DISHWASHING MACHINE REPAIRER follow up regarding control ) Bismark Birch MD [Medical Doctor] - 1 Day (Have definite follow up with Dr. Birch in the AM. ) Additional Instructions: Take your percocet as directed for severe pain. Have definite follow up with Dr. Birch in the morning to determine the further care that is needed for your kidney stone. Dr. Birch did not feel you need antibiotics at this time. You will also need to follow up with DISHWASHING MACHINE REPAIRER, Dr. Guillermo is outbound sales consultant, to have further assessment of your control method. You were given morphine twice while you were in the ER tonight. Return to the ER if you have new or worsening symptoms. - Billing Disposition and Condition Condition: STABLE Disposition: Home - Attestation Statements Document Initiated by Bobbi: Yes Documenting Scribe: Gin Gleason Provider For Whom Bobbi is Documenting (Include Credential): Dr. Harper Weber MD Scribe Attestation: Gin Le scribed for Dr. Harper Weber MD on 08/13/19 at 1422. Scribe Documentation Reviewed: Yes Provider Attestation: The documentation as recorded by the Gin yousif accurately reflects the service I personally performed and the decisions made by me, Dr. Harper Weber MD Status of Scribe Document: Viewed
[2019-07-11] MEDS ORDERED: Morphine 4 MG/ML VIAL (1 ml) 4 MG/ML VIAL IV ONE (22:51)
[2019-07-11] MEDS ORDERED: oxyCODONE/Acetamin 5/325 MG* TAB PO ONE (23:21)
== END 2019-07-11 23:35 | disposition home or self-care (01) ==
LOC: ED 18:38
DX: N13.30 Unspecified hydronephrosis (principal); N20.1 Calculus of ureter; R10.32 Left lower quadrant pain; Z87.442 Personal history of urinary calculi
CPT/HCPCS: 36415; 74018; 76775; 80053; 81003; 81015; 83605; 84702; 85025; 86140; 96361; 96374; 96375; 96376; 99284; A9270-GY; J2270; J2405